=== PATIENT | male | born 1955 | race Caucasian/White ===

== ENCOUNTER 2016-09-09 07:20 | Emergency (ER) | payer OTHER ==
[~2016-09-09] VITALS: Ht 182.9 cm; Wt 89.1 kg
[2016-09-09 08:43] LABS: HEMATOCRIT 43.6 % (38.0-50.0); MCH 31.8 PG (29.0-34.0); MCHC 33.9 G/DL (30.0-36.0); MCV 93.6 FL (86-99); MEAN PLAT.VOLUME 9.3 uM^3 (9.0-12.4); PLATELET COUNT 224 K/uL (156-360); RBC DIS.WIDTH-CV 14.8 % (11.8-14.6); RBC DIS.WIDTH-SD 51.3 % (39-53); RED BLOOD COUNT 4.66 M/uL (4.00-5.50); WHITE BLOOD COUNT 5.2 K/uL (4.1-10.2)
[2016-09-09 08:53] LABS: CHLORIDE 107 mEq/L (99-109); D-DIMER ELISA 0.55 mg/L FEU (< 0.57); POTASSIUM 4.5 mEq/L (3.7-5.4); SODIUM 138 mEq/L (136-147)
[2016-09-09 08:54] LABS: GLUCOSE 98 mg/dL (70-99)
[2016-09-09 08:56] LABS: ANION GAP 7 MEQ/L (2-14)
[2016-09-09 08:58] LABS: GFR ESTIMATE (CALCULATED) > 59 mL/min/
[2016-09-09 08:59] LABS: UREA NITROGEN (BUN) 13 mg/dL (9-23)
[2016-09-09 09:03] LABS: TROP-I INTERPRETATION NEGATIVE; TROPONIN-I < 0.01 ng/mL (0.0-0.30)
[2016-09-09] MEDS ORDERED: MOTRIN800 MG PO (09:16)
[2016-09-09 09:37] VITALS: BP 139/97
== END 2016-09-09 09:41 | disposition home or self-care (01) ==
LOC: EME 07:20
PROVIDERS: Emergency Medicine
DX: R07.89 Other chest pain (principal); Z82.49 Family history of ischemic heart disease and other diseases of the circulatory system; Z87.891 Personal history of nicotine dependence
CPT/HCPCS: 71020; 80048; 84484; 85027; 85379; 93005; 99281; 99284